=== PATIENT | male | born 1980 | race American Indian/Alaskan Native ===

== ENCOUNTER 2018-05-24 08:18 | Day surgery (SDC) | payer MEDICAID ==
[~2018-05-24 08:18] MED LIST: Lactated Ringers 1,000 ML IV SCH; Midazolam 1 MG/ML 2 ML SDV ONE; Propofol 200 MG/20 ML SDV ONE; fentaNYL 100 MCG/2 ML SDV ONE
[2018-05-24] MEDS ORDERED: levETIRAcetam 250 MG Tab PO ONE (08:45)
[2018-05-24] MEDS ORDERED: Propofol 200 MG/20 ML SDV ONE (09:24)
--- NOTE | 2018-05-24 11:01 | OR ---
DATE OF PROCEDURE: 05/24/2018 SURGEON: Tino Neff MD PREOPERATIVE DIAGNOSIS: Upper abdominal pain, strong family history of colon cancer, sister had colon cancer at age 25. POSTOPERATIVE DIAGNOSES: Upper abdominal pain, etiology unknown, gastroesophageal reflux disease, small colon polyp 25 cm from the anal verge, poor colonoscopy prep, strong family history of colon cancer, sister had colon cancer at age 25. PROCEDURE PERFORMED: Esophagogastroduodenoscopy with biopsy of gastroesophageal junction, colonoscopy to the cecum with biopsy resection of small polyp at 25 cm from the anal verge. ANESTHESIA: IV anesthesia with monitored anesthesia care. INDICATION: This 37-year-old white male is referred for upper and lower endoscopy. Indication for upper endoscopy is upper abdominal pain. Indication for colonoscopy is a strong family history of colon cancer. His sister had colon cancer at age 25. I counseled for upper and lower endoscopy with possible biopsy and/or polypectomy including risks and alternatives, and he gave his informed consent to proceed. DESCRIPTION OF PROCEDURE: The patient was placed in the left lateral decubitus position. IV anesthesia was administered by the Anesthesia Service. Time-out was held. The flexible video Olympus upper endoscope was passed through his mouth down his esophagus and into his stomach. The scope was easily passed through the pylorus, into the duodenum reaching its third portion. The scope was then slowly withdrawn examining the mucosa throughout. The duodenal mucosa appeared unremarkable. The scope was brought back through the pylorus into the antrum. The antrum appeared unremarkable. The scope was retroflexed. The proximal stomach appeared unremarkable. The scope was straightened and brought up to the GE junction. This was abnormal and that the Z-line was not straight. We obtained multiple, totalling 6 biopsies of the gastroesophageal junction. The scope was then brought proximally up through remainder of the esophagus, which otherwise appeared unremarkable and it was removed. Next, a rectal exam was performed, which was unremarkable. The flexible video Olympus colonoscope was introduced through his anus, up his rectum out his colon all way to the cecum. There was a great deal of stool present, which precluded complete examination of all the mucosa. The scope was then slowly withdrawn with examining of the visualized mucosa. No abnormalities were noted until we reached 25 cm from the anal verge. Here a small polyp was seen, which was removed with a few bites of biopsy forceps. The scope was retroflexed in the rectum with the distal rectum appearing unremarkable. The scope was straightened and removed. He tolerated the procedure well. Tino Neff MD /[id number]
== END 2018-05-24 11:08 | disposition home or self-care (01) ==
LOC: JP.SDS 08:18
PROVIDERS: ATTEND Surgery
DX: R10.10 Upper abdominal pain, unspecified (principal); K21.9 Gastro-esophageal reflux disease without esophagitis; K63.5 Polyp of colon; Z88.0 Allergy status to penicillin; Z80.0 Family history of malignant neoplasm of digestive organs
CPT/HCPCS: 43239; 45380; A9270; J2250; J2704; J3010; J7120; 88305

== ENCOUNTER 2021-03-18 20:44 | Emergency (ER) | payer MEDICAID ==
[2021-03-18] MEDS ORDERED: OXcarbazepine 300 MG Tab PO ONE (21:31)
--- NOTE | 2021-03-18 21:35 | EDM.PDOC ---
ED HPI GENERAL MEDICAL PROBLEM - General Chief Complaint: Medication Administration Stated Complaint: SEIZURE Time Seen by Provider: 03/18/21 21:10 Source of Information: Reports: Patient, Family History Limitations: Reports: No Limitations - History of Present Illness INITIAL COMMENTS - FREE TEXT/NARRATIVE: 40 year old male presenting requesting refill of his seizure medications. He has a history of seizures and takes Depakote and Trileptal. He is currently in the middle of a move and misplaced the bottle of Trileptal. He has the depakote and has been taking that as prescribed, but has not taken the Trileptal for a few days. He did have a generalized tonic clonic seizure tonight that lasted a few minutes. He has frequent seizures, his last one prior to tonight was about one month ago. - Related Data Allergies Allergy/AdvReac Type Severity Reaction Status Date / Time Penicillins Allergy Anaphylactic Verified 03/18/21 21:04 Shock Home Meds: Home Meds Divalproex Sodium [Depakote] 500 mg PO BIDMEALS 03/18/21 [History] OXcarbazepine [Trileptal] 600 mg PO BID 03/18/21 [History] OXcarbazepine [Trileptal] 600 mg PO BID #120 tablet 03/18/21 [Rx] Past Medical History Gastrointestinal History: Reports: Gastritis, GERD Musculoskeletal History: Reports: Fracture, Other (See Below) Other Musculoskeletal History: fingers, wrist fractures Neurological History: Reports: Brain Injury, Concussion, Head Trauma, Seizure, Other (See Below) Other Neuro History: fractured vertabrae Dermatologic History: Reports: Psoriasis, Other (See Below) Other Dermatologic History: pitarosis - Infectious Disease History Infectious Disease History: Reports: Chicken Pox - Past Surgical History GI Surgical History: Reports: None Musculoskeletal Surgical History: Reports: None Dermatological Surgical History: Reports: None Social & Family History - Family History Family Medical History: No Pertinent Family History GI: Reports: Other (See Below) Other GI Family History: Sister history colon ca at age 24 - Tobacco Use Tobacco Use Status *Q: Current Every Day Tobacco User Years of Tobacco use: 25 Packs/Tins Daily: 1 - Caffeine Use Caffeine Use: Reports: Coffee, Energy Drinks, Soda - Recreational Drug Use Recreational Drug Use: Yes Drug Use in Last 12 Months: Yes Recreational Drug Type: Reports: Marijuana/Hashish Recreational Drug Use Frequency: Weekly ED ROS GENERAL - Review of Systems Review Of Systems: Comprehensive ROS is negative, except as noted in HPI. ED EXAM, GENERAL - Physical Exam Exam: See Below General Appearance: Alert, No Apparent Distress Nose: Normal Inspection Throat/Mouth: Normal Inspection Head: Atraumatic, Normocephalic Neck: Supple, Full Range of Motion Respiratory/Chest: No Respiratory Distress, Lungs Clear, Normal Breath Sounds, No Accessory Muscle Use Cardiovascular: Regular Rate, Rhythm GI/Abdominal: Soft, Non-Tender Neurological: Alert, Oriented, CN II-XII Intact, No Motor/Sensory Deficits Psychiatric: Normal Affect, Normal Mood Skin Exam: Warm, Dry Course - Vital Signs Last Recorded V/S: Last Vital Signs Temp 98.9 F 03/18/21 21:07 Pulse 104 H 03/18/21 21:07 Resp 16 03/18/21 21:07 BP 124/77 03/18/21 21:07 Pulse Ox 97 03/18/21 21:07 - Orders/Labs/Meds Meds: Medications Discontinued Medications Generic Name Dose Route Start Last Admin Trade Name Randy PRN Reason Stop Dose Admin Oxcarbazepine 600 mg 03/18/21 21:31 Oxcarbazepine 300 Mg Tab PO 03/18/21 21:32 ONETIME ONE Departure - Departure Time of Disposition: 21:49 Disposition: Home, Self-Care 01 Clinical Impression: Seizure disorder - Discharge Information Prescriptions: OXcarbazepine [Trileptal] 600 mg PO BID #120 tablet Instructions: Seizure, Adult, [id number] Referrals: PCP,None [Primary Care Provider] - Forms: ED Department Discharge Additional Instructions: Fill the prescription for oxcarbazepine at any pharmacy. Take your seizure medications as prescribed. Follow up with your neurologist as soon as possible. Sepsis Event Note (ED) - Evaluation Sepsis Screening Result: No Definite Risk - Focused Exam Vital Signs: Vital Signs Temp Pulse Resp BP Pulse Ox 03/18/21 21:07 98.9 F 104 H 16 124/77 97 03/18/21 21:03 98.9 F 104 H 16 124/77 97 - Problem List Review Problem List Initiated/Reviewed/Updated: Yes - Assessment/Plan Assessment:: This is a 40 year old male presenting with a seizure earlier and requesting his seizure medications. he is otherwise in his usual state of health. he has missed taking his Trileptal for the past few days, which likely caused his seizure today. There are no other neurologic deficits or other concerning findings that would indicate another cause of his seizure today. I do not feel he requires labs or imaging at this time. He was given a dose of Trileptal in the ED and provided with prescription. He will need to follow up with his neurologist as soon as possible.
== END 2021-03-18 22:13 | disposition home or self-care (01) ==
LOC: JP.ED 20:44
DX: G40.909 Epilepsy, unspecified, not intractable, without status epilepticus (principal); Z88.0 Allergy status to penicillin; Z72.0 Tobacco use
CPT/HCPCS: 99283; A9270